=== PATIENT | male | born 1945 ===

== ENCOUNTER 2021-01-07 10:10 | Outpatient (CLI) | payer OTHER | END 2021-01-07 10:30 | disposition home or self-care (01) | LOC: PPH VACUNA 10:10 | PROVIDERS: ATTEND Emergency Medicine Pediatric Emergency Medicine | DX: Z23 Encounter for immunization (principal) ==

== ENCOUNTER 2021-07-20 08:00 | Outpatient (CLI) | payer OTHER | END 2021-07-20 08:30 | disposition home or self-care (01) | LOC: PPH VACUNA 08:00 | PROVIDERS: ATTEND Emergency Medicine Pediatric Emergency Medicine | DX: Z23 Encounter for immunization (principal) ==